=== PATIENT | male | born 1980 | race Caucasian/White ===

== ENCOUNTER 2020-07-01 22:55 | Emergency (ER) | payer MEDICAID ==
[2020-07-01] MEDS ORDERED: Alum Hydrox/Mag Hydrox/Simeth 15 ML, Lidocaine 2% 15 ML PO ONE ×2 (23:03)
--- NOTE | 2020-07-01 23:15 | EDM.PDOC ---
ED HPI GENERAL MEDICAL PROBLEM - General Chief Complaint: Chest Pain Stated Complaint: CHEST PAINS Time Seen by Provider: 07/01/20 22:55 Source of Information: Reports: Patient History Limitations: Reports: No Limitations - History of Present Illness INITIAL COMMENTS - FREE TEXT/NARRATIVE: 39-year-old male in a local detox center presents with chest pain for the past 24 to 36 hours. Apparently a GI cocktail helped him for 1/2-hour but then it returned. It seemed to worsen after starting blood pressure medication. His pain is mostly in the upper abdomen radiating into the left chest. He has a history of coronary artery disease in his family so is concerned. No shortness of breath or fever, no nausea or vomiting. Also has pain radiating down into the left lower quadrant. Onset: Gradual Duration: Day(s): Location: Reports: Chest, Abdomen (Symptoms for 2 days) Improves with: Reports: Other (Seemed to improve after some antacid was given earlier) Associated Symptoms: Reports: Chest Pain. Denies: Cough, Diaphoresis, Fever/Chills, Malaise chest pain Pain Score (Numeric/FACES): 10 left side abd Pain Score (Numeric/FACES): 5 - Related Data Allergies Allergy/AdvReac Type Severity Reaction Status Date / Time ketorolac [From Toradol] Allergy Hives Verified 07/01/20 23:12 Pertussis Vaccines Allergy Cannot Verified 07/01/20 23:12 Remember Home Meds: Home Meds amLODIPine [Norvasc] 10 mg PO DAILY 07/01/20 [History] Past Medical History Neurological History: Reports: Concussion Psychiatric History: Reports: Addiction, Anxiety, Depression, Other (See Below) Other Psychiatric History: Meth - Past Surgical History GI Surgical History: Reports: Appendectomy, Hernia Repair/Other Social & Family History - Tobacco Use Tobacco Use Status *Q: Current Every Day Tobacco User Years of Tobacco use: 22 Packs/Tins Daily: 0.5 - Caffeine Use Caffeine Use: Reports: Soda - Recreational Drug Use Recreational Drug Use: Yes Drug Use in Last 12 Months: Yes Recreational Drug Type: Reports: Methamphetamine, Oxycodone Recreational Drug Use Frequency: Weekly ED ROS GENERAL - Review of Systems Review Of Systems: See Below Constitutional: Denies: Fever, Chills HEENT: Reports: No Symptoms Respiratory: Denies: Shortness of Breath Cardiovascular: Reports: Chest Pain GI/Abdominal: Reports: Abdominal Pain. Denies: Diarrhea, Nausea, Vomiting Skin: Reports: No Symptoms Neurological: Reports: No Symptoms ED EXAM, GENERAL - Physical Exam Exam: See Below Exam Limited By: Intoxication General Appearance: Alert, No Apparent Distress Eye Exam: Bilateral Eye: Normal Inspection (No jaundice) Head: Atraumatic Respiratory/Chest: No Respiratory Distress, Lungs Clear Cardiovascular: Regular Rate, Rhythm, Tachycardia GI/Abdominal: Normal Bowel Sounds, Tender (Does react with some tenderness to palpation over the epigastric area and a little bit into the left lower quadrant but no guarding or rebound) Neurological: Alert, Oriented Psychiatric: Anxious Skin Exam: Warm, Dry Course - Vital Signs Last Recorded V/S: Last Vital Signs Temp 97.4 F 07/01/20 23:03 Pulse 100 07/01/20 23:25 Resp 15 07/01/20 23:25 BP 146/99 H 07/01/20 23:25 Pulse Ox 95 07/01/20 23:25 - Orders/Labs/Meds Labs: Laboratory Tests 07/01/20 07/01/20 07/02/20 Range/Units 23:15 23:15 00:29 WBC 7.4 (4.5-11.0) K/uL RBC 5.08 (4.30-5.90) M/uL Hgb 15.1 H (12.0-15.0) g/dL Hct 44.7 (40.0-54.0) % MCV 88 (80-98) fL MCH 30 (27-31) pg MCHC 34 (32-36) % Plt Count 260 (150-400) K/uL Neut % (Auto) 47 (36-66) % Lymph % (Auto) 40 (24-44) % Anderson % (Auto) 9 H (2-6) % Eos % (Auto) 4 (2-4) % Baso % (Auto) 1 (0-1) % Sodium 137 L (140-148) mmol/L Potassium 4.1 (3.6-5.2) mmol/L Chloride 99 L (100-108) mmol/L Carbon Dioxide 26 (21-32) mmol/L Anion Gap 16.1 H (5.0-14.0) mmol/L BUN 16 (7-18) mg/dL Creatinine 1.0 (0.8-1.3) mg/dL Est Cr Clr Drug Dosing 111.01 mL/min Estimated GFR (MDRD) > 60 (>60) Glucose 140 H (74-106) mg/dL Calcium 8.6 (8.5-10.1) mg/dL Total Bilirubin 0.3 (0.2-1.0) mg/dL AST 33 (15-37) U/L ALT 72 (12-78) U/L Alkaline Phosphatase 68 (46-116) U/L Troponin I < 0.017 (0.000-0.056) ng/mL Total Protein 7.0 (6.4-8.2) g/dL Albumin 3.6 (3.4-5.0) g/dL Globulin 3.4 (2.3-3.5) g/dL Albumin/Globulin Ratio 1.1 L (1.2-2.2) Lipase 234 (73-393) U/L Meds: Medications Discontinued Medications Generic Name Dose Route Start Last Admin Trade Name Freq PRN Reason Stop Dose Admin Al Hydroxide/Mg Hydroxide 15 0 ml 07/01/20 23:03 07/01/20 23:22 ml/ Lidocaine HCl 15 ml PO 07/01/20 23:04 30 ml ONETIME ONE Administration Ondansetron HCl 4 mg 07/01/20 23:41 07/01/20 23:57 Zofran Odt PO 07/01/20 23:42 4 mg ONETIME ONE Administration Pantoprazole Sodium 40 mg 07/02/20 00:09 07/02/20 00:40 Protonix PO 07/02/20 00:10 40 mg ONETIME ONE Administration - Re-Assessments/Exams Free Text/Narrative Re-Assessment/Exam: 07/01/20 23:15 CBC, CMP and lipase were obtained and the patient was given another GI cocktail. Departure - Departure Time of Disposition: 00:34 Disposition: DC/Tfer to Other 70 Clinical Impression: Gastritis Qualifiers: Gastritis type: unspecified gastritis Chronicity: acute Gastritis bleeding: without bleeding Qualified Code(s): K29.00 - Acute gastritis without bleeding Abdominal pain Qualifiers: Abdominal location: upper abdomen, unspecified Qualified Code(s): R10.10 - Upper abdominal pain, unspecified - Discharge Information Instructions: Gastritis, Adult, [id number] Referrals: PCP,None [Primary Care Provider] - Forms: ED Department Discharge Care Plan Goals: Continue your blood pressure medication, and also take 20 mg of omeprazole every day while you are in treatment. Should be given right away in the morning before your first meal. Sepsis Event Note (ED) - Evaluation Sepsis Screening Result: No Definite Risk - Focused Exam Vital Signs: Vital Signs Temp Pulse Resp BP Pulse Ox 07/01/20 23:25 100 15 146/99 H 95 07/01/20 23:03 97.4 F 104 H 17 160/104 H 98 07/01/20 23:02 97.4 F 104 H 17 160/104 H 98
[2020-07-01] MEDS ORDERED: Ondansetron 4 MG Tab.DIS PO ONE (23:41)
[2020-07-02] MEDS ORDERED: Pantoprazole 40 MG Tab.CR PO ONE (00:09)
== END 2020-07-02 00:44 | disposition other institution (70) ==
LOC: JP.ED 22:55
DX: K29.00 Acute gastritis without bleeding (principal); Z88.6 Allergy status to analgesic agent; Z88.7 Allergy status to serum and vaccine; Z72.0 Tobacco use; Z79.899 Other long term (current) drug therapy
CPT/HCPCS: 36415; 80053; 83690; 84484; 85025; 99285; A9270